=== PATIENT | male | born 2000 | race Caucasian/White ===

== ENCOUNTER 2022-10-05 07:32 | Emergency (ER) | payer OTHER, SELFPAY ==
--- NOTE | ~2022-10-05 | CT_ITS ---
EXAMINATION: CT BRAIN W/O DATE: 10/06/2022 12:38 INDICATION: Head injury. TECHNIQUE: Computed tomography (CT) of the head was performed without intravenous contrast. The dose- length product was 605.33 mGy-cm. Automated exposure control and iterative reconstruction technique w ere employed. COMPARISON: No prior studies for comparison. FINDINGS: Normal brain parenchymal volume for age. Normal kerr-white differentiation. No acute intrac ranial hemorrhage, infarction, mass or mass effect. No ventriculomegaly or midline shift. Midline sagittal images demonstrate a normal corpus callosum, c raniovertebral junction and sella turcica. Basilar cisterns are patent. Paranasal sinuses and mastoids are pneumatized. No depressed skull fractures. There is mild frontal s calp hematoma. IMPRESSION: 1. No acute intracranial abnormality. Reviewed, dictated and finalized at location A. STANT CURATOR
--- NOTE | ~2022-10-05 | CT_ITS ---
EXAMINATION: CT cervical spine wo con DATE: 10/06/2022 12:38 INDICATION: Head injury. Neck pain. TECHNIQUE: Computed tomography (CT) of the cervical spine was performed without intravenous contrast. The dose-length product was 324 mGy-cm. Automated exposure control and iterative reconstruction tech nique were employed. COMPARISON: None FINDINGS: There is normal cervical alignment. Vertebral body and disc heights are preserved. Craniove rtebral junction is normal. Odontoid process is normal. No evidence for perched facet. No significant abnormality of the uncinate or facet joints. No acute fracture or traumatic malalignment. Skull base is unremarkable. No significant paraspinal soft tissue abnormality. IMPRESSION: 1. No acute abnormality of the cervical spine. Reviewed, dictated and finalized at location A. EAR REACTOR TECHNICIAN
[2022-10-05 07:38] VITALS: BP 151/100; PULSE 107; RESP 22; TEMP 36.7; O2SAT 100
--- NOTE | 2022-10-05 07:58 | ED.PSYCH ---
HPI - Psych General Chief Complaint: Psychiatric Symptoms <Tyson Duran MD - Last Filed: 10/06/22 18:18> Stated Complaint: SI <Tyson Duran MD - Last Filed: 10/06/22 18:18> Time Seen by Provider: 10/05/22 07:58 <Tyson Duran MD - Last Filed: 10/06/22 18:18> Source: patient and EMS <Tyson Duran MD - Last Filed: 10/06/22 18:18> Mode of arrival: EMS <Tyson Duran MD - Last Filed: 10/06/22 18:18> History of Present Illness HPI Narrative: 22 years old male brought to the emergency room by ambulance because found running in front of traffic trying to harm himself, and was asking the police at that time is not there any easy way to kill yourself. PD stated he was banging his head on the sidewalk. Patient stated he has tried multiple times to kill himself once by taking pills and also by hanging himself. He stated that people make fun of him and he was no longer here IT would be better for everyone <Tyson Duran MD - Last Filed: 10/06/22 18:18> Related Data Allergies/Adverse Reactions: Allergies Allergy/AdvReac Type Severity Reaction Status Date / Time No Known Allergies Allergy Unverified 09/16/13 14:31 <Tyson Duran MD - Last Filed: 10/06/22 18:18> Review of Systems Review of Systems: ROS unobtainable: Yes unobtainable due to medical condition and unobtainable due to mental status <Tyson Duran MD - Last Filed: 10/06/22 18:18> [facility] Social History Social History: Social History Substance use type: former substance user <Tyson Duran MD - Last Filed: 10/06/22 18:18> Exam Narrative: General appearance: Well-developed, well-nourished Skin: Normal color Head: Normocephalic, nontraumatic Eyes: Clear conjunctiva ENT: Oropharynx normal, ears normal, nose normal Neck: Supple, nontender Chest and respiratory: Airway patent, no respiratory distress, no accessory muscle use Heart: Regular rate/rhythm Abdomen: Soft, nontender, no organomegaly, quiet bowel sounds Vascular: Normal peripheral pulses, normal capillary refill. Musculoskeletal: Normal range of motion, nontender back Neurologic: Alert and oriented ?3, [place] is normal as tested, no gross motor deficit <Tyson Duran MD - Last Filed: 10/06/22 18:18> Psych: Mental Status: mental status grossly normal (Takes long time to answer a question) <Tyson Duran MD - Last Filed: 10/06/22 18:18> Affect: Sad affect present <Tyson Duran MD - Last Filed: 10/06/22 18:18> Attitude: cooperative (Not cooperative, depressed, flat) <Tyson Duran MD - Last Filed: 10/06/22 18:18> Course Course Emergency Course: Care turned myself at shift change. Patient remained resting throughout the evening no acute change will sign back out to Dr. Duran at shift change awaiting psychiatric placement <Rian De Luna DO - Last Filed: 10/06/22 06:48> Reevaluation(s) Reevaluation #1: Patient care turned over to Dr. De Luna at shift change, awaiting , disposition. Patient been resting quietly in the emergency room without any issues or problems. <Tyson Duran MD - Last Filed: 10/06/22 18:18> Date: 10/05/22 <Tyson Duran MD - Last Filed: 10/06/22 18:18> Time: 18:51 <Tyson Duran MD - Last Filed: 10/06/22 18:18> Reevaluation #2: Patient been resting quietly in the emergency room without any issues or problems. Patient got accepted to be transferred to [facility] <Tyson Duran MD - Last Filed: 10/06/22 18:18> Date: 10/06/22 <Tyson Duran MD - Last Filed: 10/06/22 18:18> Time: 16:16 <Tyson Duran MD - Last Filed: 10/06/22 18:18> Vi
[2022-10-05 08:10] LABS: Basophils Percent Auto 0.4 % (0.2-1.2); Eosinophils Absolute Auto 0.1 K/mm3 (0-0.3); Eosinophils Percent Auto 0.9 % (0-4.4); Hematocrit 44.8 % (42.0-52.0); Hemoglobin 15.1 g/dL (14.0-18.0); Immature Granulocyte Absolute 0.01 K/mm3 (0.00-0.031); Immature Granulocyte Percent A 0.2 % (0-0.5); Lymphocytes Absolute Auto 1.93 K/mm3 (0.9-3.2); Lymphocytes Percent Auto 34.4 % (18.3-44.2); Mean Corpuscular HGB Conc 33.7 g/dl (32-36); Mean Corpuscular Hemoglobin 29.3 pg (26-34); Mean Platelet Volume 9.7 fl (7.4-10.4); Monocytes Absolute Auto 0.4 K/mm3 (0.1-0.6); Monocytes Percent Auto 7.5 % (2.6-8.5); Neutrophils Absolute Auto 3.2 K/mm3 (1.3-6.7); Neutrophils Percent Auto 56.6 % (45.5-73.1); Platelet Count Result 246 k/mm3 (150-375); Red Blood Count 5.15 M/mm3 (4.6-6.20); Red Cell Distribution Width 12.2 % (11.5-14.5); White Blood Count 5.6 K/mm3 (4.5-10.0)
[2022-10-05 08:21] LABS: Alanine Aminotransferase 19 U/L (6-50); Albumin Level 4.6 g/dL (3.5-5.1); Alkaline Phosphatase 54 U/L (38-126); Anion Gap 7 mmol/L (8-16); Aspartate Amino Transferase 28 U/L (17-59); Bilirubin,Total 0.7 mg/dL (0.2-1.3); Blood Urea Nitrogen 10 mg/dL (9-20); Calcium 9.8 mg/dL (8.4-10.2); Carbon Dioxide 25 mmol/L (22-30); Chloride 104 mmol/L (98-107); Estimated Glomerular Filt Rate > 60; Glucose 101 mg/dL (65-110); Potassium 3.8 mmol/L (3.4-5.0); Sodium 136 mmol/L (137-145)
[2022-10-05 08:22] LABS: Ethanol < 10 mg/dL (<10)
[2022-10-05 08:47] LABS: Influenza A QL RT-PCR Negative (Negative); Influenza B QL RT-PCR Negative (Negative); RSV RNA, RT-PCR Negative (Negative); SARS-CoV-2 RNA PCR Negative
[2022-10-05 10:18] LABS: Appearance Urine Clear (Clear); Bilirubin Urine Negative (Negative); Blood Urine Negative (Negative); Color Urine Yellow (Yellow); Glucose Urine UA Negative (Negative); Ketones Urine Negative (Negative); Leukocyte Esterase Ur Negative LEU/UL (Negative); Nitrate Urine Negative (Negative); Protein Urine Negative (Negative); Urobilinogen Urine 0.2 mg/dL (<2.0); pH Urine 8.5 (5.0-9.0)
[2022-10-05 10:32] LABS: Add Urine Microscopic? NO; Amphetamine Screen Urine Negative (Negative); Barbiturate Screen Urine Negative (Negative); Benzodiazepines Screen Urine Negative (Negative); Cannabinoid Screen Urine Negative (Negative); Cocaine Screen Urine Negative (Negative); Methadone Screen Urine Negative (Negative); Opiate Screen Urine Negative (Negative); Phencyclidine Screen Urine Negative (Negative)
--- NOTE | 2022-10-05 11:12 | PC.NURSE ---
[facility] contacted. Arrival for crisis intervention worker ETA two hours.
--- NOTE | 2022-10-05 18:27 | PC.NURSE ---
Patient calm and cooperative. Patient resting in bed at this time.
[2022-10-05 18:36] VITALS: BP 142/61; PULSE 86; RESP 16; O2SAT 97
--- NOTE | 2022-10-05 20:20 | PC.NURSE ---
[facility]. Will inform Talat with crisis.
--- NOTE | 2022-10-05 22:56 | PC.NURSE ---
Chart faxed to [facility]
[2022-10-06 04:54] VITALS: BP 107/55; PULSE 72; RESP 20; O2SAT 100
--- NOTE | 2022-10-06 07:30 | PC.NURSE ---
Report received from Gogo CORDOVA. Pt resting comfortably in bed with lights dimmed. Sitter at bedside. Meals ordered for pt for the day at this time.
[2022-10-06 10:36] VITALS: BP 134/61; PULSE 79; RESP 18; TEMP 36.9; O2SAT 99
--- NOTE | 2022-10-06 14:54 | PC.NURSE ---
BLS transfer to [facility] [address] [place] [facility]/Declined [address] [place] [facility] / Declined [address] [place] [facility] - Waiting on [place] Operator approval Trip # [id number] [address] [place] [facility] / Declined [address] / Declined
--- NOTE | 2022-10-06 15:13 | PC.NURSE ---
[facility] accepted transfer ETA 30-45min
[2022-10-06 17:13] VITALS: BP 116/76; PULSE 83; RESP 16; O2SAT 100
--- NOTE | 2022-10-06 17:15 | PC.NURSE ---
[facility] here for patient transport to [facility]. All of patient's belonging send with EMS crew, patient confirmed his wallet was in one of his bags and confirmed he still had $194 yun in his wallet. Wallet placed back in the bag and bag tied up for EMS to take with patient. All paper work and transfer papers given to EMS crew. Verbal report given to EMS crew and all questions answered at this time. Patient calm and cooperative with EMS crew. Patient sat on EMS stretcher and was taken out to ambulance.
== END 2022-10-06 17:18 ==
LOC: ANHED 08:17
PROVIDERS: Emergency Provider Emergency Medicine
DX: T14.91XA Suicide attempt, initial encounter (principal); S09.90XA Unspecified injury of head, initial encounter; F32.A Depression, unspecified; F29 Unspecified psychosis not due to a substance or known physiological condition; Z20.822 Contact with and (suspected) exposure to COVID-19; X83.8XXA Intentional self-harm by other specified means, initial encounter
CPT/HCPCS: 36415; 70450; 72125; 80053; 80307; 81003; 84443; 85025; 87637; 99285

== ENCOUNTER 2022-12-07 13:15 | Inpatient (IN) | payer OTHER, SELFPAY ==
[2022-12-07] VITALS (30 sets, daily range): BP systolic 98–171; BP diastolic 64–100; PULSE 124–155; RESP 12–27; TEMP 37.2–38.4; O2SAT 95–100; BMI 24.0
--- NOTE | ~2022-12-07 | CT_ITS ---
EXAMINATION: CT brain wo con DATE: 12/07/2022 14:42 INDICATION: Transient alteration of awareness. TECHNIQUE: Computed tomography (CT) of the head was performed without intravenous contrast. The mA wa s adjusted according to patient size. Iterative reconstruction technique was employed. The dose-lengt h product was 605.33 mGy-cm. COMPARISON: Head CT 10/06/2022 FINDINGS: There is no intracranial hemorrhage, acute infarction, or abnormal intracranial mass lesion . The ventricles are normal in size. There is mild mucosal thickening in the paranasal sinuses. The o rbits are normal. The mastoid air cells are normal. IMPRESSION: 1. Normal brain. Reviewed, dictated and finalized at location A. KO KURA TUARUA IMPRESSION: 1. Normal brain.
--- NOTE | ~2022-12-07 | XR_ITS ---
EXAMINATION: XR chest 1V portable INDICATION: Fever TECHNIQUE: Portable AP chest at 0829 hours COMPARISON: 12/07/2022 FINDINGS: The lungs are free of acute opacities. No pleural effusion or pneumothorax. The cardiomedia stinal silhouette is normal. Orthopedic hardware is noted in the left humerus. IMPRESSION: 1. No acute cardiopulmonary abnormality. Reviewed, dictated and finalized at location A. NESS SYSTEM CONSULTANT
--- NOTE | ~2022-12-07 | XR_ITS ---
EXAMINATION: XR chest 1V portable INDICATION: Altered mental status TECHNIQUE: Portable AP chest at 1418 hours COMPARISON: None available FINDINGS: The right costophrenic angle is excluded from the examination. No pleural effusion or pneum othorax. The lungs are free of acute opacities. The cardiomediastinal silhouette is normal. There is partially imaged orthopedic hardware in the left humerus. IMPRESSION: 1. No acute cardiopulmonary abnormality. Reviewed, dictated and finalized at location B. ROOM SUPERVISOR
--- NOTE | 2022-12-07 13:34 | ECG_ITS ---
Measurements Intervals [place] Rate: 134 P: 64 AK: 112 QRS: 22 QRSD: 98 T: 54 QT: 331 QTc: 495 Interpretive Statements SINUS TACHYCARDIA WITH SHORT AK INTERVAL NONSPECIFIC T-WAVE ABNORMALITY ABNORMAL ECG NO PREVIOUS ECG AVAILABLE FOR COMPARISON Electronically Signed On 12-08-2022 12:45:01 CEPHALOMETRIC TECHNICIAN by Randy Jaimes M.D.
[2022-12-07 13:53] LABS: Basophils Percent Auto 0.2 % (0.2-1.2); Eosinophils Percent Auto 0.3 % (0-4.4); Hemoglobin 15.5 g/dL (14.0-18.0); Immature Granulocyte Absolute 0.06 K/mm3 (0.00-0.031); Immature Granulocyte Percent A 0.4 % (0-0.5); Lymphocytes Absolute Auto 1.43 K/mm3 (0.9-3.2); Mean Corpuscular Volume 90.9 fl (80-100); Mean Platelet Volume 9.4 fl (7.4-10.4); Monocytes Absolute Auto 1.2 K/mm3 (0.1-0.6); Monocytes Percent Auto 7.6 % (2.6-8.5); Neutrophils Absolute Auto 13.1 K/mm3 (1.3-6.7); Neutrophils Percent Auto 82.5 % (45.5-73.1); Platelet Count Result 269 k/mm3 (150-375); Red Blood Count 5.17 M/mm3 (4.6-6.20); Red Cell Distribution Width 12.3 % (11.5-14.5); White Blood Count 15.9 K/mm3 (4.5-10.0)
--- NOTE | 2022-12-07 13:57 | ED.AMS ---
HPI - Altered Mental Status General Chief Complaint: Altered Mental Status Stated Complaint: overdose combative Time Seen by Provider: 12/07/22 13:23 History of Present Illness HPI narrative: Pt [facility] with [facility] after being found unresponsive on floor of hotel room. Pt had empty bottle of zyprexa and lithium and partially full bottle of tylenol by him. Pt is not answering questions and not responding to verbal stimuli but is restless and moving all extremities in bed. Related Data Allergies Allergy/AdvReac Type Severity Reaction Status Date / Time No Known Allergies Allergy Unverified 09/16/13 14:31 Review of Systems Review of Systems: ROS unobtainable: Yes unobtainable due to mental status PMFSH Past Medical History Medical History (Updated 12/07/22 @ 16:03 by Agueda Gutierrez PA-C) Schizophrenia Suicide attempt Surgical History Surgical History (Updated 12/07/22 @ 15:53 by Agueda Gutierrez PA-C) Surgical history unknown Family History Family History (Updated 12/07/22 @ 17:01 by Mariama Washburn RN) Other Family history unknown Unknown family medical history Social History Social History (Updated 12/07/22 @ 15:55 by Agueda Gutierrez PA-C) Social History: Legal guardian: Breanne Garcia. Code status: Full code. Substance use type: former substance user Exam Const: General: confusion Nutritional Appearance: well nourished Limitations: altered mental status HENMT: Head: normal to inspection Mouth: Yes Normal oral and palatal mucosa present Eyes: Conjunctivae: conjunctivae normal Pupils: Equal, round and reactive pupils present EOM: EOMs intact bilaterally Neck: Neck: normal visual inspection and no lymphadenopathy Chest: Chest palpation & inspection: normal inspection of the chest Resp: Effort & Inspection: normal respiratory effort Auscultation: clear to auscultation bilaterally Cardio: Rate: tachycardic Rhythm: regular rhythm GI: GI Palp: Yes Soft to palpation Auscultation: normal bowel sounds Skin: General skin exam: normal color Rashes: no rashes Wounds: no wounds Neuro: General: moves all extremities Extrem: General: normal to inspection and no clubbing, cyanosis or edema Course Vital Signs Vital signs: Vital Signs Temperature 99.0 F 12/07/22 13:26 Pulse Rate 145 H 12/07/22 13:26 Respiratory Rate 15 12/07/22 13:26 Blood Pressure 135/78 12/07/22 13:26 Pulse Oximetry 95 12/07/22 13:26 Oxygen Delivery Nasal Cannula 12/07/22 13:26 Oxygen Flow Rate 2 12/07/22 13:26 Temperature 100.9 F H 12/07/22 21:07 Pulse Rate 140 H 12/07/22 18:00 Respiratory Rate 27 H 12/07/22 18:00 Blood Pressure 157/89 H 12/07/22 18:00 Pulse Oximetry 100 12/07/22 18:00 Oxygen Delivery Nasal Cannula 12/07/22 17:01 Oxygen Flow Rate 2 12/07/22 17:01 MDM - Altered Mental Status MDM Narrative Medical decision making narrative: Pt found unresponsive with empty bottles of zyprexa and lithium in apparent overdose. Will order tox and sepsis labs and head CT and call poison control. Monitor lithium levels, watch for seizures, WBC elevated, CPK 1335, CT head and cxr neg. Likely related to OD will monitor airway for now. DW Dr Santillan and Camille Rivera and will admit to ICU Differential Diagnosis Differential diagnosis: Likely alcoholic intoxication, altered mental status, delirium, dementia, hypoglycemia, hyponatremia, subarachnoid hemorrhage and sepsis Lab Data 12/07/22 13:44 12/07/22 13:44 Labs: Lab Results 12/07/22 12/07/22 12/07/22 Range/Units 13:44 13:44 13:44 WBC 15.9 H (4.5-10.0) K/mm3 RBC 5.17 (4.6-6.20) M/mm3 Hgb 15.5 (14.0-18.0) g/dL Hct 47.0 (42.0-52.0) % MCV 90.9 (80-100) fl MCH 30.0 (26-34) pg MCHC 33.0 (32-36) g/dl RDW 12.3 (11.5-14.5) % Plt Count 269 (150-375) k/mm3 MPV 9.4 (7.4-10.4) fl Immature Gran % (Auto) 0.4 (0-0
[2022-12-07 14:02] LABS: Lactic Acid Reflex 1.4 mmol/L (0.7-2.0)
[2022-12-07 14:03] LABS: Alanine Aminotransferase 26 U/L (6-50); Albumin Level 4.9 g/dL (3.5-5.1); Alkaline Phosphatase 69 U/L (38-126); Anion Gap 8 mmol/L (8-16); Aspartate Amino Transferase 47 U/L (17-59); Bilirubin,Total 0.9 mg/dL (0.2-1.3); Blood Urea Nitrogen 8 mg/dL (9-20); Calcium 9.6 mg/dL (8.4-10.2); Carbon Dioxide 26 mmol/L (22-30); Chloride 102 mmol/L (98-107); Estimated Glomerular Filt Rate > 60; Glucose 105 mg/dL (65-110); Potassium 3.5 mmol/L (3.4-5.0); Sodium 136 mmol/L (137-145)
--- NOTE | 2022-12-07 14:03 | PC.NURSE ---
Spoke to [place] poison control regarding potential overdose with Zyprexa and [place]. [place] peaks at 1.5-3 hours and extended release peaks in 3-7 hours, asymptomatic as lithium levels rise, however since patient probably has been taking these his levels may already be up. Watch GI symptoms and could also be neuro and cardio toxic. S/s include confusion, agitation, seizures, clonus, rigid muscles, bradycardia, hypotension and conduction delays in the heart. Watch BUN and creatinine levels and check lithium level. Zyprexa - toxic dose is 100mg, peaks in 6 hours. Half life is 30 hours. S/s include fatigue, change in blood pressure, tremors, agitation, delirium, seizures, hypotension and tachycardia, and QT prolongation. Recommend fluids and benzos for seizures.
[2022-12-07 14:06] LABS: INR 1.2; Prothrombin Time 14.5 Seconds (11.1-14.7)
[2022-12-07 14:08] LABS: Partial Thromboplastin Time 29.3 SECONDS (22.3-36.8)
[2022-12-07] MEDS: SODIUM CHLORIDE 0.9% IV 1,000 ML 999 ML IV CONT (14:20)
[2022-12-07] MEDS: LORazepam INJ (*CRX) 2 MG/ML VIAL 1 MG IV PUSH ×3 (14:20→22:36)
[2022-12-07 14:39] LABS: Acetaminophen < 10 ug/mL (10-30); Ethanol < 10 mg/dL (<10); Salicylate < 1.0 mg/dL (2-20)
[2022-12-07 14:44] LABS: Creatine Kinase 1335 U/L (55-170)
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
--- NOTE | 2022-12-07 15:00 | PC.NURSE ---
pt urinated in the bed while on the cat scanner. this rn and application systems architect changed pt and bed at this time. no distress noted.
--- NOTE | 2022-12-07 15:01 | PC.NURSE ---
Patent back from CT, covered in urine. Patient changed and and placed in a clean gown. Patient also beginning to have difficulty clearing secretions. Patient being suctioned at bedside. EDP Quach aware.
[2022-12-07 15:37] LABS: Lithium 0.9 mmol/L (0.6-1.2)
--- NOTE | 2022-12-07 15:44 | PC.NURSE ---
Patient on bed aware.
[2022-12-07 15:49] LABS: Appearance Urine Clear (Clear); Bilirubin Urine Negative (Negative); Blood Urine Negative (Negative); Color Urine Yellow (Yellow); Glucose Urine UA Negative (Negative); Ketones Urine 1+ mg/dL (Negative); Leukocyte Esterase Ur Negative LEU/UL (Negative); Nitrate Urine Negative (Negative); Protein Urine Negative (Negative); Specific Grav Ur 1.015 (1.001-1.035); Urobilinogen Urine 0.2 mg/dL (<2.0); pH Urine 8.5 (5.0-9.0)
[2022-12-07 15:54] LABS: Add Urine Microscopic? YES; Mucus Urine Rare /lpf; RBC Urine 0-2 /hpf (0-2); WBC Urine 0-3 /hpf
[2022-12-07 16:00] LABS: Amphetamine Screen Urine Negative (Negative); Barbiturate Screen Urine Negative (Negative); Benzodiazepines Screen Urine Negative (Negative); Cannabinoid Screen Urine Positive (Negative); Cocaine Screen Urine Negative (Negative); Methadone Screen Urine Negative (Negative); Opiate Screen Urine Negative (Negative); Phencyclidine Screen Urine Negative (Negative)
[2022-12-07 16:05] LABS: Influenza A QL RT-PCR Negative (Negative); Influenza B QL RT-PCR Negative (Negative); SARS-CoV-2 RNA PCR Negative
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
--- NOTE | 2022-12-07 17:16 | ADMGEN ---
This patient, Timothy Cruz, was admitted to Intensive Care Unit-2. Patient/family oriented to hospital policies and general routines including ID bracelet, bed and alarms, visiting hours, pain management, procedures, bathroom and other care routines, personal items, smoking policy, room service/diet, and visiting hours. Information on how to activate the Rapid Response Team has been discussed. Patient/Family are encouraged to report perceived risks to care and to ask questions if they do not understand what they are told or what they should do.
[2022-12-07] MEDS: LACTATED RINGERS 1,500 ML 999 ML IV CONT (17:51)
[2022-12-07 18:02] LABS: Appearance Urine Clear (Clear); Bilirubin Urine Negative (Negative); Blood Urine 2+ (Negative); Color Urine Yellow (Yellow); Glucose Urine UA Negative (Negative); Ketones Urine 1+ mg/dL (Negative); Leukocyte Esterase Ur Negative LEU/UL (NEGATIVE); Nitrate Urine Negative (Negative); Protein Urine Negative (Negative); Specific Grav Ur 1.015 (1.001-1.035); Urobilinogen Urine 0.2 mg/dL (<2.0)
[2022-12-07 18:06] LABS: Bacteria Urine Trace /hpf; Mucus Urine Rare /lpf; RBC Urine >75 /hpf (0-2); Squamous Epithelial Cell Urine Occasional /hpf (Few)
[2022-12-07 18:11] LABS: Add Urine Microscopic? YES
--- NOTE | 2022-12-07 18:29 | PC.NURSE ---
Spoke with Dr. Santillan regarding patient. New order for 1500ml LR bolus, PRN IV Tylenol for fever >101, and order labs for in the AM (CBC, CMP, Mag, CK), obtain UA w/ urine culture since now that patient has a rodriguez
[2022-12-07] MEDS: LACTATED RINGERS 1,000 ML 100 ML IV CONT (18:47)
[2022-12-07 21:37] LABS: Lithium 0.8 mmol/L (0.6-1.2)
[2022-12-07 21:40] LABS: Albumin Level 3.8 g/dL (3.5-5.1); Anion Gap 5 mmol/L (8-16); Blood Urea Nitrogen 7 mg/dL (9-20); Carbon Dioxide 26 mmol/L (22-30); Chloride 110 mmol/L (98-107); Creatine Kinase 1386 U/L (55-170); Estimated CRCL calculation 150 ml/min; Estimated Glomerular Filt Rate > 60; Glucose 93 mg/dL (65-110); Phosphorus 3.4 mg/dL (2.5-4.5); Potassium 4.1 mmol/L (3.4-5.0); Sodium 141 mmol/L (137-145)
[2022-12-07] MEDS: dexmedeTOMIDine 400 MCG/100 ML 400 MCG/100 ML BAG IV CONT (21:44)
[2022-12-07 23:22] LABS: Free T4 Free Thyroxine Reflex 1.46 ng/dL (0.78-2.19)
--- NOTE | 2022-12-07 23:22 | PC.NURSE ---
1914 Assumed care of the patient. Pt combative and very restless. Consulted with poison control pharmacist, Sriram, and then called Dr. Santillan with an update and for orders. Dr. Santillan ordered Ativan 1 mg IV Q 2 hrs PRN, Precedex to titrate and Zosyn 3.375mg Q 6 hrs. PITER Romeo put in lab orders for renal function panel serial [place] levels. 2299 PITER Romeo ordered soft wrist restraints.
[2022-12-07 23:53] LABS: Acetaminophen 11 ug/mL (10-30)
[2022-12-08] VITALS (23 sets, daily range): BP systolic 105–144; BP diastolic 50–91; PULSE 78–135; RESP 15–30; TEMP 37.3–38.4; O2SAT 94–100
[2022-12-08 00:40] LABS: Total Triiodothyronine (T3) 1.86 NG/ML (0.97-1.69)
[2022-12-08] MEDS: LACTATED RINGERS 1,000 ML 200 ML IV CONT ×2 (02:05→06:41)
[2022-12-08 03:26] LABS: Hematocrit 42.4 % (42.0-52.0); Hemoglobin 13.6 g/dL (14.0-18.0); Mean Corpuscular HGB Conc 32.1 g/dl (32-36); Mean Corpuscular Hemoglobin 29.5 pg (26-34); Mean Platelet Volume 9.5 fl (7.4-10.4); Platelet Count Result 247 k/mm3 (150-375); Red Blood Count 4.61 M/mm3 (4.6-6.20); Red Cell Distribution Width 12.4 % (11.5-14.5); White Blood Count 10.6 K/mm3 (4.5-10.0)
[2022-12-08 03:38] LABS: Alanine Aminotransferase 24 U/L (6-50); Albumin Level 3.6 g/dL (3.5-5.1); Alkaline Phosphatase 55 U/L (38-126); Anion Gap 2 mmol/L (8-16); Aspartate Amino Transferase 46 U/L (17-59); Bilirubin,Total 1.1 mg/dL (0.2-1.3); Blood Urea Nitrogen 7 mg/dL (9-20); Calcium 8.9 mg/dL (8.4-10.2); Carbon Dioxide 28 mmol/L (22-30); Chloride 111 mmol/L (98-107); Creatine Kinase 1132 U/L (55-170); Estimated CRCL calculation 119 ml/min; Estimated Glomerular Filt Rate > 60; Glucose 92 mg/dL (65-110); Magnesium 2.1 mg/dL (1.6-2.3); Potassium 4.2 mmol/L (3.4-5.0); Sodium 141 mmol/L (137-145)
[2022-12-08 03:59] LABS: Lithium 0.7 mmol/L (0.6-1.2)
[2022-12-08] MEDS: dexmedeTOMIDine 400 MCG/100 ML 400 MCG/100 ML BAG 11.43 MCG IV CONT (04:47)
--- NOTE | 2022-12-08 07:36 | PC.NURSE ---
0730 Poison Control updated on patient's condition.
--- NOTE | 2022-12-08 08:10 | ECG_ITS ---
Measurements Intervals [place] Rate: 103 P: 58 PA: 131 QRS: 25 QRSD: 95 T: 30 QT: 308 QTc: 405 Interpretive Statements SINUS TACHYCARDIA ST ELEVATION, CONSIDER PERICARDITIS, EARLY REPOLARIZATION OR INJURY PATTERN ABNORMAL ECG COMPARED TO ECG 12/07/2022 13:35:49 NO SIGNIFICANT CHANGES Electronically Signed On 12-08-2022 12:50:04 SUIT MAKER by Randy Jaimes M.D.
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
--- NOTE | 2022-12-08 09:11 | WPDCNINT ---
Assessment and Plan Assessment and plan (1) Rhabdomyolysis: Code(s): M62.82 - Rhabdomyolysis Status: Acute Assessment and Plan: Continue IV fluids Monitor CK level Normal renal function (2) Encephalopathy: Code(s): G93.40 - Encephalopathy, unspecified Status: Acute Assessment and Plan: Toxic encephalopathy secondary to drug overdose which is either intentional or suicidal. Patient is also received Ativan for agitation in the ED and is currently on Precedex infusion UDS positive for cannabinoids Tylenol alcohol and salicylate levels were normal [place] levels remain normal on multiple checks UA negative Head CT negative Hold Precedex this morning Continue to monitor His TSH was high but free T4 was normal. Total T3 was elevated Exam and history not consistent with meningitis (3) Overdose: Code(s): T50.901A - Poisoning by unspecified drugs, medicaments and biological substances, accidental (unintentional), initial encounter Status: Acute Assessment and Plan: Not sure if this was intentional or accidental has history is limited but patient does have history of suicide attempts in the past Repeat EKG this morning [place] levels have been in acceptable range Patient has one-to-one sitter (4) Fever: Code(s): R50.9 - Fever, unspecified Status: Acute Assessment and Plan: Patient had elevated WBC count and was febrile on presentation UA and chest x-ray were normal on presentation This morning when I examined the patient he was coughing and had some phlegm. He may have aspirated I have started him on Zosyn I will repeat chest x-ray. He is afebrile this morning and his WBC has normalized this morning Monitor Check procalcitonin level Plan DVT prophylaxis -SCDs Stress ulcer prophylaxis - Nutrition -npo Code Status - Full Code Door Liner Consult Note Consult date: 12/08/22 Reason for consult: Altered mental status HPI: Timothy Cruz is a 22 year old male with reported history of schizophrenia and multiple suicide attempts who presented yesterday to the emergency department via EMS from a local motel for evaluation of altered mental status and suspected overdose. Patient is unable to provide any history given his altered mental status. Admitting provider obtained history from his electronic medical records as well as discussions with 2 individuals who are at his bedside who are familiar with the patient (1 is the homeless coordinator for [facility] and the other is an employee of the local library who has known the patient for many months). According to these 2 individuals the patient showed up in the area around September 2022 and he frequents the local library and occasionally works at [employer]. He and his mother do not have a relationship and apparently his father lives somewhere in [place] though we have no contact for him. He has a legal guardian, Breanne Garcia ([phone]). Up until recently the patient was living on the streets but has been staying in a local motel following a hospitalization at [facility] in [place], [place] in October following a suicide attempt in which he reportedly jumped into traffic and a busy intersection. It looks like he was started on multiple medications including haloperidol, olanzapine, lithium, and benztropine and those were filled on 11/12/2022. He has been staying at a local motel since that time which was arranged by the homeless coordinator. Yesterday a worker from [place] went to pick him up to take him to an appointment however he did not answer the door and when motel staff open locks of the door he was found face down and altered. He received 4 mg of Narcan prior to arrival with no improvement in symptoms. Per EMS report they found empty bottles of olanzapine and lithium nearby. He was afebrile on arrival to the ER.? He was tachycardic in the 130s to 140s with stable blood pressures. Keesha
[2022-12-08 09:17] LABS: Albumin Level 3.7 g/dL (3.5-5.1); Anion Gap 5 mmol/L (8-16); Blood Urea Nitrogen 9 mg/dL (9-20); Carbon Dioxide 26 mmol/L (22-30); Chloride 109 mmol/L (98-107); Creatine Kinase 820 U/L (55-170); Estimated CRCL calculation 107 ml/min; Estimated Glomerular Filt Rate > 60; Glucose 80 mg/dL (65-110); Potassium 4.2 mmol/L (3.4-5.0); Sodium 140 mmol/L (137-145)
[2022-12-08 09:29] LABS: Lithium 0.6 mmol/L (0.6-1.2)
[2022-12-08] MEDS: LORazepam INJ (*CRX) 2 MG/ML VIAL 1 MG IV PUSH ×2 (09:39→20:21)
[2022-12-08 09:49] LABS: Procalcitonin 0.1 ng/mL
[2022-12-08] MEDS: LACTATED RINGERS 1,000 ML 125 ML IV CONT ×2 (12:58→21:02)
[2022-12-08 20:43] LABS: Lithium 0.5 mmol/L (0.6-1.2)
--- NOTE | 2022-12-08 23:15 | PC.NURSE ---
2000 Patient was initially calm until his blood pressure cuff needed to be adjusted. He then began screaming obscenities, kicking the footboard of the bed, and punching himself in the face while yelling, I'm gonna fing kill myself! The sitter and RN were able to keep the patient from further harming himself. Dr. Santillan called and gave order to resume Precedex drip.
[2022-12-09] VITALS (15 sets, daily range): BP systolic 109–140; BP diastolic 46–76; PULSE 69–108; RESP 15–22; TEMP 36.3–37.5; O2SAT 97–100
[2022-12-09] MEDS: dexmedeTOMIDine 400 MCG/100 ML 400 MCG/100 ML BAG 11.43 MCG IV CONT (00:21)
[2022-12-09] MEDS: LACTATED RINGERS 1,000 ML 125 ML IV CONT (03:53)
[2022-12-09 04:15] LABS: Hematocrit 40.8 % (42.0-52.0); Hemoglobin 13.1 g/dL (14.0-18.0); Mean Corpuscular HGB Conc 32.1 g/dl (32-36); Mean Corpuscular Volume 90.3 fl (80-100); Mean Platelet Volume 9.2 fl (7.4-10.4); Platelet Count Result 235 k/mm3 (150-375); Red Blood Count 4.52 M/mm3 (4.6-6.20); Red Cell Distribution Width 11.9 % (11.5-14.5); White Blood Count 10.7 K/mm3 (4.5-10.0)
[2022-12-09 04:28] LABS: Alanine Aminotransferase 22 U/L (6-50); Albumin Level 3.4 g/dL (3.5-5.1); Alkaline Phosphatase 53 U/L (38-126); Anion Gap 3 mmol/L (8-16); Aspartate Amino Transferase 34 U/L (17-59); Bilirubin,Total 0.8 mg/dL (0.2-1.3); Blood Urea Nitrogen 7 mg/dL (9-20); Calcium 8.9 mg/dL (8.4-10.2); Carbon Dioxide 27 mmol/L (22-30); Chloride 109 mmol/L (98-107); Estimated CRCL calculation 150 ml/min; Estimated Glomerular Filt Rate > 60; Glucose 107 mg/dL (65-110); Magnesium 1.9 mg/dL (1.6-2.3); Potassium 3.9 mmol/L (3.4-5.0); Sodium 139 mmol/L (137-145)
[2022-12-09 09:42] LABS: Creatine Kinase 491 U/L (55-170)
--- NOTE | 2022-12-09 10:33 | PM.IMPN ---
Progress Note: A&P Assessment and Plan (1) Fever: Code(s): R50.9 - Fever, unspecified Status: Acute Assessment and Plan: Patient now with fevers. He meets sepsis criteria with tachycardia and elevated WBC. Lactate normal. CXR reviewed personally and is clear but consider aspiration PNA given the clinical situation. BCx NGTD. UCx negative. Influenza and COVID negative. Still with fevers. Continue Zosyn. Follow for clinical improvement. (2) Intentional overdose: Code(s): T50.902A - Poisoning by unspecified drugs, medicaments and biological substances, intentional self-harm, initial encounter Status: Acute Assessment and Plan: The patient presented to the ED via EMS from a local motel room where he was found with altered mental status. Concerns are for possible intentional drug overdose with empty bottles of olanzapine and lithium and a partially full bottle of acetaminophen close by. Poison Control was contacted and they recommend close monitoring and IV fluid rehydration. Lorazepam available as needed for seizure activity. Serial [place] levels has been within normal limits. Salicylate and acetaminophen levels were also normal. UDS negative except for cannabinoids. Alcohol level negative. Patient more awake and alert but not forth coming with information. No evidence of untoward side effects from the medication overdose. Medically cleared now (as long as fever resolves) but having more psychiatric problems with agitation. Seroquel started. Continue IV fluids given elevated CK. Remove Granda? (3) Encephalopathy: Code(s): G93.40 - Encephalopathy, unspecified Status: Acute Assessment and Plan: As above. Suspect related to medication overdose and then Precedex. Precedex stopped and mental status better. (4) Suicide gesture: Code(s): X83.8XXA - Intentional self-harm by other specified means, initial encounter Status: Acute Assessment and Plan: Patient has schizophrenia and hx of suicide attempt. Suspect this is another attempted suicide. Further discussion was unfruitful. He will need psychiatric placement once able to be arranged. (5) Rhabdomyolysis: Code(s): M62.82 - Rhabdomyolysis Status: Acute Assessment and Plan: TCK peaked at 1386. UA on admission was negative for blood or RBC (2nd UA has blood related to traumatic Granda placement). IV fluids started. TCK levels trending down. Continue IV fluids; okay to stop since TCK 490 (6) Schizophrenia: Code(s): F20.9 - Schizophrenia, unspecified Status: Acute Assessment and Plan: As above. Contributing to the etiology of his recurrent suicide attempts. Subjective Date/time seen: 12/09/22 10:33 Interval history: 22yo male with schizophrenia and hx of suicide attempts here for intentional drug overdose. Patient off sedation yesterday but became more agitated so given Ativan and Precedex. Off Precedex again this morning. He is awake but groggy. He refuses to answer any questions. He has no memory of the events leading to this hospitalization. He refuses to state how long he has been feeling suicidal. Hx is very limited Review of Systems Review of Systems: ROS unobtainable: Yes unobtainable due to mental status Exam Narrative: Tm 101.2 97.4 110/58 72 16 99% ra Gen - NARD sitting up in bed feeding himself breakfast. Chest - CTA bilaterally to mostly quiet respirations, nml RR CV - RRR S1/S2. Telemetry showing occasional sinus tachycardia Abd -soft. NT/ND, +BS -Granda catheter secured draining clear yellow urine. Ext - No pedal edema Neuro - awake, groggy, no focal weakness. Psych - poor eye contact. monosyllabic answers or 'don't know' Skin - Warm and dry Objective Data Vital Signs Vital Signs: Vital Signs - 24 hr 12/08/22 11:41 12/08/22 12:00 12/08/22 12:43 Temperature 101 F H 101.2 F H Pulse Rate 113 H Respiratory Rate 18 [place]
[2022-12-09] MEDS: QUEtiapine FUMARATE 25 MG TABLET PO ×2 (10:59→20:46)
[2022-12-09] MEDS: LACTATED RINGERS 1,000 ML 75 ML IV CONT (12:25)
--- NOTE | 2022-12-09 13:18 | WPDINTPN ---
Progress Note: A&P Assessment and Plan (1) Rhabdomyolysis: Code(s): M62.82 - Rhabdomyolysis Status: Acute Assessment and Plan: Continue IV fluids but decrease the rate Monitor CK level which is improved Normal renal function (2) Encephalopathy: Code(s): G93.40 - Encephalopathy, unspecified Status: Acute Assessment and Plan: Toxic encephalopathy secondary to drug overdose which is either intentional or suicidal. Yesterday patient had clinically improved but overnight patient became agitated and combative Precedex was resumed UDS positive for cannabinoids Tylenol alcohol and salicylate levels were normal [place] levels remain normal on multiple checks UA negative Head CT negative I will Hold Precedex again this morning Continue to monitor His TSH was high but free T4 was normal. Total T3 was elevated Exam and history was not consistent with meningitis Patient this morning is alert oriented and is eating his breakfast Start low-dose Seroquel (3) Overdose: Code(s): T50.901A - Poisoning by unspecified drugs, medicaments and biological substances, accidental (unintentional), initial encounter Status: Acute Assessment and Plan: Not sure if this was intentional or accidental has history is limited. Patient is still not forthcoming in providing any information as he continues to say I do not know pills he took and how much. He does have history of suicide attempts in the past. He has expressed suicidal ideations nursing staff EKG done yesterday showed sinus tachycardia with normal QRS and QTC [place] levels have been in acceptable range but again patient does not give accurate information regarding whether he was taking it regularly or not Patient has one-to-one sitter which will be continue (4) Fever: Code(s): R50.9 - Fever, unspecified Status: Acute Assessment and Plan: Patient had elevated WBC count on presentation and was febrile on presentation UA and chest x-ray were normal on presentation Yesterday when I examined the patient he was coughing and had some phlegm. He may have aspirated patient was started on Repeat chest x-ray was still clear His is WBC has normalized Monitor His procalcitonin level was low suggesting against sepsis (5) Schizophrenia: Code(s): F20.9 - Schizophrenia, unspecified Status: Acute (6) Abnormal EKG: Code(s): R94.31 - Abnormal electrocardiogram [ECG] [EKG] Status: Acute Assessment and Plan: EKG reviewed Check troponin and echocardiogram Plan DVT prophylaxis -SCDs Nutrition -regular diet Code Status - Full Code Discontinue Granda Incentive spirometry patient coverage Subjective Date/time seen: 12/09/22 Overnight events reviewed. Was febrile last night but afebrile this morning Good urine output Vital signs are acceptable Overnight patient became agitated and combative. He started screaming obscenities at staff and kicking the footboard of the bed and punching himself in the face while threatening to ' kill himself' patient was started on Precedex infusion and was given a dose of Ativan This morning he appears much more calm. He again is not very forthcoming with any information and answers I do not know to most questions. He is partially oriented knows where he were but would not provide any information regarding what pills and how much he took. He gets frustrated easily on asking any questions. Limited review of system was obtained and patient denied any pain shortness of breath fever cough headache nausea vomiting belly pain. Interval history: 22yo male with schizophrenia and hx of suicide attempts here for intentional drug overdose. Patient off sedation yesterday but became more agitated so given Ativan and Precedex. Off Precedex again this morning. He is awake but groggy. He refuses to answer any questions. He has no memory of the events leading to this hospitalization. He
[2022-12-09 16:14] LABS: Troponin I < 0.012 ng/mL (0.000-0.034)
[2022-12-10] VITALS (12 sets, daily range): BP systolic 120–159; BP diastolic 55–83; PULSE 91–116; RESP 16–20; TEMP 36.7–37.5; O2SAT 97–100
--- NOTE | 2022-12-10 | ECHO_ITS ---
Patient Info Name: Timothy Cruz Age: 22 years : 2000 Gender: Male Ht: 70 in Wt: 167 lbs BSA: 1.94 m2 HR: 98 bpm BP: 120 / 66 mmHg Heart Rhythm: Sinus Rhythm Technical Quality: Fair Exam Date: 12/10/2022 7:33 AM Exam Location: [facility] Card Pulmonary Patient Status: Inpatient Admit Date: 12/07/2022 Staff Ordering Physician: Delroy Santillan MD Funeral Prearrangement Counselor: Zakiya Torres RDCS Attending Provider: Arlene Ponce MD Exam Type: CA echo doppler color flow Study Info Indications - abnormal ekg Complete two-dimensional, color flow and Doppler transthoracic echocardiogram is performed. Summary 1. Complete two-dimensional, color flow and Doppler transthoracic echocardiogram is performed. 2. Left ventricular chamber dimension is normal. 3. Left ventricular systolic function is normal, estimated at 60-65%. 4. The left ventricular diastolic function is normal. 5. E/e' 7 is not elevated. 6. There is trace tricuspid valve regurgitation. 7. No pulmonary hypertension, estimated pulmonary arterial systolic pressure is 18 mmHg. Left Ventricle E/e' 7 is not elevated. Left ventricular chamber dimension is normal. Left ventricular systolic function is normal, estimated at 60-65%. The left ventricular diastolic function is normal. Right Ventricle Right ventricular chamber dimension is normal. Right ventricular systolic function is normal. Left Atria Left atrial chamber dimension is normal. Right Atria Right atrial chamber dimension is normal. Aortic Valve The aortic valve is trileaflet. There is no aortic valve stenosis. There is no aortic valve regurgitation. Pulmonic Valve There is no pulmonic regurgitation. Mitral Valve There is no mitral valve stenosis. There is no mitral valve regurgitation. Tricuspid Valve There is trace tricuspid valve regurgitation. No pulmonary hypertension, estimated pulmonary arterial systolic pressure is 18 mmHg. Pericardium/Pleural There is no pericardial effusion. Inferior Vena Cava Normal inferior vena cava with >50% collapse upon inspiration consistent with normal right atrial pressure, 5 mmHg. Aorta The aortic root size at the sinus of Valsalva is normal. Left Ventricular Outflow Tract Name Value Normal LVOT 2D LVOT Diameter 2.0 cm LVOT Doppler LVOT Peak Gradient 3 mmHg LVOT Mean Gradient 2 mmHg LVOT VTI 15 cm LVOT VTI/AV VTI Ratio 0.7 LVOT Stroke Volume 47 ml LVOT CO 3.4 l/min LVOT CI 1.8 l/min/m2 Pulmonic Valve Name Value Normal RVOT Doppler RVOT Peak Gradient 2 mmHg PV Doppler
[2022-12-10] MEDS: LACTATED RINGERS 1,000 ML 75 ML IV CONT (02:00)
[2022-12-10 04:48] LABS: Alanine Aminotransferase 36 U/L (6-50); Albumin Level 3.4 g/dL (3.5-5.1); Alkaline Phosphatase 45 U/L (38-126); Anion Gap 5 mmol/L (8-16); Aspartate Amino Transferase 47 U/L (17-59); Bilirubin,Total 0.5 mg/dL (0.2-1.3); Blood Urea Nitrogen 8 mg/dL (9-20); Calcium 8.6 mg/dL (8.4-10.2); Carbon Dioxide 26 mmol/L (22-30); Chloride 108 mmol/L (98-107); Creatine Kinase 525 U/L (55-170); Estimated CRCL calculation 150 ml/min; Estimated Glomerular Filt Rate > 60; Glucose 112 mg/dL (65-110); Magnesium 1.7 mg/dL (1.6-2.3); Potassium 3.6 mmol/L (3.4-5.0); Sodium 139 mmol/L (137-145)
[2022-12-10 04:50] LABS: Hematocrit 39.8 % (42.0-52.0); Hemoglobin 12.8 g/dL (14.0-18.0); Mean Corpuscular HGB Conc 32.2 g/dl (32-36); Mean Corpuscular Hemoglobin 29.4 pg (26-34); Mean Corpuscular Volume 91.3 fl (80-100); Mean Platelet Volume 9.8 fl (7.4-10.4); Platelet Count Result 246 k/mm3 (150-375); Red Blood Count 4.36 M/mm3 (4.6-6.20); Red Cell Distribution Width 11.9 % (11.5-14.5); White Blood Count 8.1 K/mm3 (4.5-10.0)
[2022-12-10] MEDS: QUEtiapine FUMARATE 25 MG TABLET PO ×2 (08:10→21:30)
--- NOTE | 2022-12-10 09:05 | WPDINTPN ---
Progress Note: A&P Assessment and Plan (1) Rhabdomyolysis: Code(s): M62.82 - Rhabdomyolysis Status: Acute Assessment and Plan: Improved and CK level is down Good p.o. intake Discontinue IV fluid Normal renal function (2) Encephalopathy: Code(s): G93.40 - Encephalopathy, unspecified Status: Acute Assessment and Plan: Toxic encephalopathy secondary to drug overdose which is either intentional or suicidal. Yesterday patient had clinically improved but overnight patient became agitated and combative UDS positive for cannabinoids Tylenol alcohol and salicylate levels were normal [place] levels remain normal on multiple checks UA negative Head CT negative His TSH was high but free T4 was normal. Total T3 was elevated Exam and history was not consistent with meningitis Patient this morning is alert oriented and come is eating his breakfast Has not required Ativan of Precedex in last 24 hours. Continue Low-dose Seroquel (3) Overdose: Code(s): T50.901A - Poisoning by unspecified drugs, medicaments and biological substances, accidental (unintentional), initial encounter Status: Acute Assessment and Plan: Not sure if this was intentional or accidental has history is limited. Patient is still not forthcoming in providing any information as he continues to say I do not know pills he took and how much. He does have history of suicide attempts in the past. He has expressed suicidal ideations nursing staff EKG done yesterday showed sinus tachycardia with normal QRS and QTC [place] levels have been in acceptable range but again patient does not give accurate information regarding whether he was taking it regularly or not Patient has one-to-one sitter which will be continue Will request psychiatry evaluation today (4) Fever: Code(s): R50.9 - Fever, unspecified Status: Acute Assessment and Plan: Patient had elevated WBC count on presentation and was febrile on presentation UA and chest x-ray were normal on presentation After admission to ICU when I examined the patient he was coughing and had some phlegm. He may have aspirated patient was started on Zosyn Repeat chest x-ray was still clear His is WBC has normalized and he is now afebrile His procalcitonin level was low suggesting against sepsis Switched to Zosyn to p.o. Augmentin (5) Schizophrenia: Code(s): F20.9 - Schizophrenia, unspecified Status: Acute Assessment and Plan: Continue Seroquel Psychiatric evaluation for inpatient treatment (6) Abnormal EKG: Code(s): R94.31 - Abnormal electrocardiogram [ECG] [EKG] Status: Acute Assessment and Plan: EKG reviewed and suggested pericarditis Normal troponin Patient is asymptomatic echocardiogram done and report pending Plan DVT prophylaxis -SCDs Nutrition -regular diet Code Status - Full Code Discontinue Granda Incentive spirometry patient coverage Transfer out of ICU today Subjective Date/time seen: 12/10/22 Overnight events reviewed. Afebrile He feels much better this morning and is very calm. Overnight no issues with agitation He did take his Seroquel and did not require any Precedex restraints. Did not need any Ativan Denies any complaint this morning and states he feels much better and would like to have his breakfast Other Vitals acceptable I specifically asked him if he had any chest pain prior to the overdose and he denied any. Patient denies fever, chest pain, shortness of breath, cough, nausea vomiting, abdominal pain,, diarrhea, headache or constipation.. For the systems were reviewed and were negative Interval history: 22yo male with schizophrenia and hx of suicide attempts here for intentional drug overdose. Patient off sedation yesterday but became more agitated so given Ativan and Precedex. Off Precedex again this morning. He is awake but groggy. He refuses to answer any questions. He has no memory of t
--- NOTE | 2022-12-10 09:36 | PM.IMPN ---
Progress Note: A&P Assessment and Plan (1) Fever: Code(s): R50.9 - Fever, unspecified Status: Acute Assessment and Plan: Patient with fevers. He meets sepsis criteria with tachycardia and elevated WBC. Lactate normal. CXR reviewed personally and is clear but consider aspiration PNA given the clinical situation. BCx NGTD. UCx negative. Influenza and COVID negative. Fevers have resolved and normal WBC. Zosyn changed to Augmentin to finish a course. Follow (2) Overdose: Code(s): T50.901A - Poisoning by unspecified drugs, medicaments and biological substances, accidental (unintentional), initial encounter Status: Acute Assessment and Plan: The patient presented to the ED via EMS from a local motel room where he was found with altered mental status. Concerns are for possible intentional drug overdose with empty bottles of olanzapine and lithium and a partially full bottle of acetaminophen close by. Poison Control was contacted and they recommend close monitoring and IV fluid rehydration. EKG on admission showing sinus tachycardia and nonspecific T-wave changes; QTc 495. Lorazepam available as needed for seizure activity. Serial [place] levels has been within normal limits. Salicylate and acetaminophen levels were also normal. UDS negative except for cannabinoids. Alcohol level negative. Patient more awake and alert but not forth coming with information. No evidence of untoward side effects from the medication overdose. Medically cleared now. He was having agitation now controlled with Seroquel. (3) Encephalopathy: Code(s): G93.40 - Encephalopathy, unspecified Status: Acute Assessment and Plan: Toxic encephalopathy secondary to drug overdose and then Precedex. Precedex stopped and mental status better. Patient did become agitated and combative and Seroquel added. Mood better. (4) Suicide gesture: Code(s): X83.8XXA - Intentional self-harm by other specified means, initial encounter Status: Acute Assessment and Plan: Patient has schizophrenia and hx of suicide attempt. Not sure if this was intentional or accidental but suspect this is another attempted suicide given the clinical situation and clinical course. Patient is not forthcoming in providing any information. He has expressed suicidal ideations to the nursing staff. Patient has one-to-one sitter which will be continue. Placement being arranged (5) Rhabdomyolysis: Code(s): M62.82 - Rhabdomyolysis Status: Acute Assessment and Plan: TCK peaked at 1386. UA on admission was negative for blood or RBC (2nd UA has blood related to traumatic Granda placement). IV fluids started. Renal function remain normal. TCK levels were trending down (up slightly today). (6) Abnormal EKG: Code(s): R94.31 - Abnormal electrocardiogram [ECG] [EKG] Status: Acute Assessment and Plan: EKG repeated now showing QTc [address] elevation. No complaints of chest pain. Troponin negative. Echo showing EF 60-65% and no effusion or wall motion abnormalities. (7) Schizophrenia: Code(s): F20.9 - Schizophrenia, unspecified Status: Acute Assessment and Plan: As above. Contributing to the etiology of his recurrent suicide attempts. Continue Seroquel Psychiatric evaluation for inpatient treatment Subjective Date/time seen: 12/10/22 09:36 Interval history: 22yo male with schizophrenia and hx of suicide attempts here for intentional drug overdose. Patient remained afebrile overnight. Patient slept well last night. He complains of left inner thigh and leg pain. He denies any trauma to this area. He states he has no memory of what transpired over the past few days. He denies feeling suicidal prior to admission. No nausea or vomiting. No abdominal pain. No chest pain or shortness of breath. No cough. Exam Narrative: AF 98.1 131/83 101 16 99% ra Gen - NA
[2022-12-10 21:56] LABS: INR 1.1; Prothrombin Time 13.5 Seconds (11.1-14.7)
[2022-12-11] VITALS: PULSE 91
[2022-12-11 03:54] VITALS: PULSE 86
[2022-12-11 04:37] LABS: Hematocrit 41.1 % (42.0-52.0); Hemoglobin 13.3 g/dL (14.0-18.0); Mean Corpuscular HGB Conc 32.4 g/dl (32-36); Mean Corpuscular Hemoglobin 29.8 pg (26-34); Mean Corpuscular Volume 91.9 fl (80-100); Mean Platelet Volume 9.1 fl (7.4-10.4); Platelet Count Result 255 k/mm3 (150-375); Red Blood Count 4.47 M/mm3 (4.6-6.20); Red Cell Distribution Width 12.1 % (11.5-14.5); White Blood Count 6.7 K/mm3 (4.5-10.0)
[2022-12-11 04:55] LABS: Alanine Aminotransferase 60 U/L (6-50); Albumin Level 3.7 g/dL (3.5-5.1); Alkaline Phosphatase 50 U/L (38-126); Anion Gap 5 mmol/L (8-16); Aspartate Amino Transferase 51 U/L (17-59); Bilirubin,Total 0.3 mg/dL (0.2-1.3); Blood Urea Nitrogen 10 mg/dL (9-20); Calcium 8.8 mg/dL (8.4-10.2); Carbon Dioxide 28 mmol/L (22-30); Chloride 104 mmol/L (98-107); Creatine Kinase 276 U/L (55-170); Estimated CRCL calculation 172 ml/min; Estimated Glomerular Filt Rate > 60; Glucose 101 mg/dL (65-110); Potassium 3.7 mmol/L (3.4-5.0); Sodium 137 mmol/L (137-145)
[2022-12-11 08:00] VITALS: BP 132/58; PULSE 70; PULSE 76; RESP 18; TEMP 37.1; O2SAT 94
[2022-12-11] MEDS: QUEtiapine FUMARATE 25 MG TABLET PO (08:02)
--- NOTE | 2022-12-11 09:39 | ECG_ITS ---
Measurements Intervals [place] Rate: 78 P: 54 [place]: 140 QRS: 27 QRSD: 97 T: 21 QT: 342 QTc: 391 Interpretive Statements SINUS RHYTHM COMPARED TO ECG 12/08/2022 10:25:15 SINUS RHYTHM NOW PRESENT Electronically Signed On 12-11-2022 14:53:06 [employer] by Tanisha Mills M.D.
[2022-12-11 10:38] LABS: Prothrombin Time 12.6 Seconds (11.1-14.7)
[2022-12-11 11:02] LABS: Lithium < 0.2 mmol/L (0.6-1.2)
[2022-12-11 11:59] LABS: SARS-CoV-2 RNA PCR Negative
--- NOTE | 2022-12-11 12:42 | PM.IMPN ---
Progress Note: A&P Assessment and Plan (1) Fever: Code(s): R50.9 - Fever, unspecified Status: Acute Assessment and Plan: Patient with fevers. He met sepsis criteria with tachycardia and elevated WBC. Lactate normal. CXR reviewed personally and is clear but consider aspiration PNA given the clinical situation. BCx NGTD. UCx negative. Influenza and COVID negative. Fevers have resolved and normal WBC. Zosyn changed to Augmentin to finish a course. Follow (2) Overdose: Code(s): T50.901A - Poisoning by unspecified drugs, medicaments and biological substances, accidental (unintentional), initial encounter Status: Acute Assessment and Plan: The patient presented to the ED via EMS from a local motel room where he was found with altered mental status. Concerns are for possible intentional drug overdose with empty bottles of olanzapine and lithium and a partially full bottle of acetaminophen close by. Poison Control was contacted and they recommend close monitoring and IV fluid rehydration. EKG on admission showing sinus tachycardia and nonspecific T-wave changes; QTc 495. Lorazepam available as needed for seizure activity. Serial [place] levels has been within normal limits but now negative. Salicylate and acetaminophen levels were also normal. UDS negative except for cannabinoids. Alcohol level negative. Patient more awake and alert but not forth coming with information. No evidence of untoward side effects from the medication overdose. Medically cleared now. He was having agitation now controlled with Seroquel. (3) Encephalopathy: Code(s): G93.40 - Encephalopathy, unspecified Status: Acute Assessment and Plan: Toxic encephalopathy secondary to drug overdose and then Precedex. Precedex stopped and mental status better. Patient did become agitated and combative and Seroquel added. Mood better. (4) Suicide gesture: Code(s): X83.8XXA - Intentional self-harm by other specified means, initial encounter Status: Acute Assessment and Plan: Patient has schizophrenia and hx of suicide attempt. Not sure if this was intentional or accidental but suspect this is another attempted suicide given the clinical situation and clinical course. Patient is not forthcoming in providing any information. He has expressed suicidal ideations to the nursing staff. Patient has one-to-one sitter which will be continue. Placement being arranged. (5) Rhabdomyolysis: Code(s): M62.82 - Rhabdomyolysis Status: Acute Assessment and Plan: TCK peaked at 1386. UA on admission was negative for blood or RBC (2nd UA has blood related to traumatic [place] placement). IV fluids started. Renal function remain normal. TCK levels were trending down. Granda out. (6) Abnormal EKG: Code(s): R94.31 - Abnormal electrocardiogram [ECG] [EKG] Status: Acute Assessment and Plan: EKG repeated now showing QTc [address] elevation. No complaints of chest pain. Troponin negative. Echo showing EF 60-65% and no effusion or wall motion abnormalities. (7) Schizophrenia: Code(s): F20.9 - Schizophrenia, unspecified Status: Acute Assessment and Plan: As above. Contributing to the etiology of his recurrent suicide attempts. Continue Seroquel. Psychiatric evaluation for inpatient treatment Subjective Date/time seen: 12/11/22 12:42 Interval history: 22yo male with schizophrenia and hx of suicide attempts here for intentional drug overdose. No complaints today. No CP, SOB or cough. Eating okay. Exam Narrative: AF 98.7 132/58 76 18 94% ra Gen - NARD sitting at the side of the bed Chest - CTA bilaterally, nml RR CV - RRR S1/S2.? Telemetry showing no significant dysrhythmias Abd -soft. NT/ND, +BS Ext - No pedal edema. Psych - normal mood and affect Skin - Warm and dry Objective Data Vital Signs Vital Signs: Vital Signs - 24 hr
--- NOTE | 2022-12-11 14:12 | PC.NURSE ---
Addendum entered by Janell Cutler RN 12/11/22 18:13: 1800 Patient left with transportation. Discharge packet signed, IV taken out. [facility]14 [facility] Addendum entered by Janell Cutler RN 12/11/22 15:01: 1445 Berenice called back. Need clearance from poison control. 1500 Poison control has no further recommendations at this time. Berenice aware and will call back to determine if approved to accept. Original Note: Kayla from [facility] called to inform this RN of needing to re-fax information and gather more labs. Given number for [facility] to obtain correct orders. Berenice at [facility] called. This RN Recieved what information still needs obtained and sent. Dr. Ohara bedside. Orders put in. Patient refuses to wear shelter monitor. Patient ripped off armband. 1230 This RN updated Berenice at [facility] that all needed information has been faxed. She will be looking into it and will call back after review. Patient restless in room walking around. This RN offered ativan, patient refused. 1300 Kayla called this RN to update that she also talked to Berenice at [facility] and information is being reviewed.
--- NOTE | 2022-12-11 16:31 | PM.DS ---
DS: Admitting Diagnosis Discharge Date 12/11/22 Admitting Diagnosis Altered mental status DS: Discharge Diagnosis Discharge Diagnosis (1) Fever: Code(s): R50.9 - Fever, unspecified Status: Acute (2) Overdose: Code(s): T50.901A - Poisoning by unspecified drugs, medicaments and biological substances, accidental (unintentional), initial encounter Status: Acute (3) Encephalopathy: Code(s): G93.40 - Encephalopathy, unspecified Status: Acute (4) Suicide gesture: Code(s): X83.8XXA - Intentional self-harm by other specified means, initial encounter Status: Acute (5) Rhabdomyolysis: Code(s): M62.82 - Rhabdomyolysis Status: Acute (6) Abnormal EKG: Code(s): R94.31 - Abnormal electrocardiogram [ECG] [EKG] Status: Acute (7) Schizophrenia: Code(s): F20.9 - Schizophrenia, unspecified Status: Acute DS: Summary Hospital Course Reason for hospitalization: 22yo male with schizophrenia and hx of suicide attempts here for AMS from probable intentional drug overdose. Please see H&P for details. Hospital Course: The patient presented to the ED via EMS from a local motel room where he was found with altered mental status. Concerns are for possible intentional drug overdose with empty bottles of olanzapine and lithium and a partially full bottle of acetaminophen close by. Poison Control was contacted and they recommend close monitoring and IV fluid rehydration. EKG on admission showing sinus tachycardia and nonspecific T-wave changes; QTc 495. Lorazepam was available as needed for seizure activity. Serial [place] levels were within normal limits but now negative. Salicylate and acetaminophen levels were also normal. UDS negative except for cannabinoids. Alcohol level negative. Patient became more awake and alert but not forth coming with information on events leding up to his hospitalization. No evidence of untoward side effects from the medication overdose. He was having agitation now controlled with Seroquel. Patient with fevers. He met sepsis criteria with tachycardia and elevated WBC. Lactate normal. CXR reviewed personally and is clear but consider aspiration PNA given the clinical situation. BCx NGTD. UCx negative. Influenza and COVID negative. Zosyn started. Fevers have resolved and normal WBC. Zosyn changed to Augmentin to finish a course. Patient has schizophrenia and hx of suicide attempt. Not sure if this was intentional or accidental but suspect this is another attempted suicide given the clinical situation and clinical course. Patient is not forthcoming in providing any information. He has expressed suicidal ideations to the nursing staff. Patient had a one-to-one sitter. Total CK peaked at 1386. UA on admission was negative for blood or RBC (2nd UA has blood related to traumatic Granda placement). IV fluids started. Renal function remained normal. TCK levels were near normal. EKG was repeated now showing QTc [address] elevation felt to be repolorization. No complaints of chest pain. Troponin negative. Echo showing EF 60-65% and no effusion or wall motion abnormalities. Patient medically cleared now. He overall did well and will be transferred to a psychiatric facility. Status at Discharge Cognitive/behavioral status at discharge: Stable Time Spent with Patient Time attestation: Total time spent providing and/or coordinating discharge services: 34 minutes Time spent: Greater than 30 minutes Exam Narrative: AF 98.7 132/58 76 18 94% ra Gen - NARD sitting at the side of the bed Chest - CTA bilaterally, nml RR CV - RRR S1/S2.? Telemetry showing no significant dysrhythmias Abd -soft. NT/ND, +BS Ext - No pedal edema. Psych - normal mood and affect Skin - Warm and dry DS: Data Data Completed and Pending Labs on day of discharge: Labs from last 24 hours 12/11/22 12/11/22 12/11/22 11:17 10:19 04:33 WBC RBC Hgb
== END 2022-12-11 18:00 | DRG 817 ==
LOC: ANHED 15:19 → ANHICU 16:13 → ANH2MED 19:25 → ANHICU 19:26
PROVIDERS: Internal Medicine; Nurse Practitioner; Physician Assistant; Admitting Provider Family Medicine; Emergency Provider Emergency Medicine; Visit Provider Internal Medicine
DX: T43.592A Poisoning by other antipsychotics and neuroleptics, intentional self-harm, initial encounter (principal); J69.0 Pneumonitis due to inhalation of food and vomit; A41.9 Sepsis, unspecified organism; G92.8 Other toxic encephalopathy; T39.1X2A Poisoning by 4-Aminophenol derivatives, intentional self-harm, initial encounter; F20.9 Schizophrenia, unspecified; M62.82 Rhabdomyolysis; Z20.822 Contact with and (suspected) exposure to COVID-19
CPT/HCPCS: 36415; 51701; 70450; 71045; 80053; 80069; 80178; 80307; 81001; 82550; 83605; 83735; 84145; 84439; 84443; 84480; 84484; 85025; 85027; 85610; 85730; 87040; 87086; 87636; 93005; 93306; 96375; 99285; A9270; J0131; J2060; J2543; J7030; J7120; U0003; U0005